=== PATIENT | male | born 1980 | race Caucasian/White ===

== ENCOUNTER 2018-12-01 09:20 | Emergency (ER) | payer SELFPAY ==
[~2018-12-01] VITALS: Ht 180.3 cm; Wt 144.2 kg
[2018-12-01 09:28] VITALS: BP 141/84
== END 2018-12-01 10:23 | disposition home or self-care (01) ==
LOC: ER 09:20
DX: S81.851A Open bite, right lower leg, initial encounter (principal); L08.9 Local infection of the skin and subcutaneous tissue, unspecified; F17.210 Nicotine dependence, cigarettes, uncomplicated; Z88.2 Allergy status to sulfonamides; W57.XXXA Bitten or stung by nonvenomous insect and other nonvenomous arthropods, initial encounter; Y93.89 Activity, other specified; Y99.8 Other external cause status; Y92.89 Other specified places as the place of occurrence of the external cause

== ENCOUNTER 2018-12-09 14:27 | Emergency (ER) | payer OTHER ==
[~2018-12-09] VITALS: Ht 180.3 cm; Wt 131.5 kg
[2018-12-09 14:35] VITALS: BP 181/93
[2018-12-09] MEDS ORDERED: KETOROLAC TROMETH 60MG/2ML VIAL IM ONE (16:30)
== END 2018-12-09 17:05 | disposition home or self-care (01) ==
LOC: ER 14:27
DX: S43.102A Unspecified dislocation of left acromioclavicular joint, initial encounter (principal); F17.210 Nicotine dependence, cigarettes, uncomplicated; Z88.1 Allergy status to other antibiotic agents; Z88.2 Allergy status to sulfonamides; W11.XXXA Fall on and from ladder, initial encounter; Y93.89 Activity, other specified; Y92.89 Other specified places as the place of occurrence of the external cause; Y99.8 Other external cause status
CPT/HCPCS: 73030; 96372; 99283; J1885

== ENCOUNTER 2019-02-01 09:02 | Emergency (ER) | payer SELFPAY ==
[~2019-02-01] VITALS: Ht 182.9 cm; Wt 108.9 kg
[2019-02-01 09:19] VITALS: BP 183/77
[2019-02-01] MEDS ORDERED: HYDROcodone-ACET 10/325MG TAB PO ONE (12:00)
== END 2019-02-01 13:15 | disposition home or self-care (01) ==
LOC: EDBD 09:02 → ER 09:02 → EDUNIT# 09:02 → ER 13:15
DX: S92.421A Displaced fracture of distal phalanx of right great toe, initial encounter for closed fracture (principal); S80.212A Abrasion, left knee, initial encounter; S80.211A Abrasion, right knee, initial encounter; F41.0 Panic disorder [episodic paroxysmal anxiety]; E66.01 Morbid (severe) obesity due to excess calories; R51 Headache; F17.210 Nicotine dependence, cigarettes, uncomplicated; Z68.32 Body mass index [BMI] 32.0-32.9, adult; Z88.1 Allergy status to other antibiotic agents; Z88.2 Allergy status to sulfonamides; X50.1XXA Overexertion from prolonged static or awkward postures, initial encounter; Y93.89 Activity, other specified; Y92.481 Parking lot as the place of occurrence of the external cause; Y99.8 Other external cause status
CPT/HCPCS: 70450; 72170; 73030; 73562; 73620; 99284; L3260

== ENCOUNTER 2020-04-04 21:35 | Emergency (ER) | payer SELFPAY ==
[~2020-04-04] VITALS: Ht 180.3 cm; Wt 122.5 kg
[2020-04-04 22:30] VITALS: BP 158/94
[2020-04-04] MEDS ORDERED: SODIUM CHLORIDE 0.9% 2,000 ML IV ONE (22:45)
== END 2020-04-04 23:10 ==
LOC: ER 21:38
DX: F15.980 Other stimulant use, unspecified with stimulant-induced anxiety disorder (principal); R00.0 Tachycardia, unspecified; F17.210 Nicotine dependence, cigarettes, uncomplicated; Z88.1 Allergy status to other antibiotic agents; Z88.2 Allergy status to sulfonamides
CPT/HCPCS: 99283; J7030

== ENCOUNTER 2023-03-27 01:38 | Emergency (ER) | payer SELFPAY ==
[~2023-03-27] VITALS: Ht 182.9 cm; Wt 155.0 kg
[2023-03-27 03:30] LABS: Basophils # (auto) 0.1 10 ^3/uL (0-0.2); Basophils % (auto) 0.8 % (0.0-2.0); Eosinophils # (auto) 0.1 10 ^3/uL (0-0.8); Hemoglobin 13.6 g/dL (13.5-17.5); Lymphocytes # (auto) 2.6 10 ^3/uL (0.4-5.4); Lymphocytes % (auto) 22.8 % (10.0-50.0); Mean Corpuscular Hemoglobin 27.4 pg (28.0-32.0); Mean Corpuscular Hgb Conc. 33.2 g/dL (32.0-36.0); Mean Corpuscular Volume 82.5 fL (80.0-100.0); Monocytes # (auto) 0.6 10 ^3/uL (0-1.3); Monocytes % (auto) 5.3 % (0.0-12.0); Neutrophils # (auto) 8.1 10 ^3/uL (1.6-8.6); Neutrophils % (auto) 70.1 % (37.0-80.0); Nucleated Red Blood Cells % 0.1 %; Red Blood Cells 4.97 10^6/uL (4.5-5.90); Red Cell Distribution Width 15.9 % (11.8-14.3); White Blood Cell 11.5 10^3/uL (4.4-10.8)
[2023-03-27 03:44] LABS: Albumin 3.4 g/dL (3.4-5.0); BUN/Creatinine Ratio 13.1 (10.0-20.0); Calcium 8.6 mg/dL (8.5-10.1); Potassium 3.9 mmol/L (3.5-5.1)
[2023-03-27 03:47] LABS: Bilirubin, Total 0.3 mg/dL (0.2-1.0); INR 0.98 (0.9-1.15); Partial Thromboplastin Time 25.9 sec (24.6-33.4); Total Protein 7.3 g/dL (6.4-8.2)
[2023-03-27 04:54] VITALS: BP 116/72
== END 2023-03-27 05:11 | disposition short-term general hospital (02) ==
LOC: ER 01:38 → EDBD 01:38 → ER 05:11
DX: S01.01XA Laceration without foreign body of scalp, initial encounter (principal); F17.210 Nicotine dependence, cigarettes, uncomplicated; F15.90 Other stimulant use, unspecified, uncomplicated; Z88.2 Allergy status to sulfonamides; Z88.1 Allergy status to other antibiotic agents; V89.2XXA Person injured in unspecified motor-vehicle accident, traffic, initial encounter; Y93.89 Activity, other specified; Y92.89 Other specified places as the place of occurrence of the external cause; Y99.8 Other external cause status
CPT/HCPCS: 12004; 36415; 70450; 70486; 71250; 72125; 74176; 80053; 84484; 85025; 85610; 85730

== ENCOUNTER 2023-05-05 14:51 | Emergency (ER) | payer SELFPAY ==
[~2023-05-05] VITALS: Ht 175.3 cm; Wt 97.0 kg
[2023-05-05 15:24] VITALS: BP 158/95
== END 2023-05-05 15:33 | disposition home or self-care (01) ==
LOC: ER 14:51
DX: S01.01XD Laceration without foreign body of scalp, subsequent encounter (principal); F41.9 Anxiety disorder, unspecified; F17.210 Nicotine dependence, cigarettes, uncomplicated; F15.90 Other stimulant use, unspecified, uncomplicated; Z88.1 Allergy status to other antibiotic agents; Z88.2 Allergy status to sulfonamides; X58.XXXD Exposure to other specified factors, subsequent encounter

== ENCOUNTER 2025-05-08 20:08 | Emergency (ER) | payer SELFPAY ==
[~2025-05-08] VITALS: Ht 182.9 cm; Wt 177.3 kg
[2025-05-08 20:08] VITALS: TEMP 97
[2025-05-08] MEDS ORDERED: ADENOSINE 6 MG/2 ML INJ IV ONE (20:09)
--- NOTE | 2025-05-08 20:29 | ED.PDOC ---
CPR-HPI HPI Comments 45 y/o morbidly obese male, with no known medical history, is BIBA for c/c of cardiac arrest. Per EMS report, initial call at 1919 by patient's mother for complaint of chest pain and unwitnessed fall. Arrival on scene at 1923. Patient was found lodged in a corner, initially in asystole, with a GSC of 3, fixed and dilated pupils, blood glucose of 500, and capillary refill of 15-20x seconds. Last seen normal was reported by mother to have been 15x minutes prior to arrival. CPR was started, immediately. En route, patient was given 8x rounds of epinephrine and 1x round of sodium bicarbonate (last epinephrine dosage administered at 2000) in addition to I/O right tibia. Upon arrival to ED at 2004, patient still remained in asystole. 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 Time Seen by MD: 20:05 Reviewed Notes: Flaking Roll Operator Notes Allergies: Coded Allergies: Sulfamethoxazole w/Trimethoprim (Verified Allergy, Severe, 12/01/18) Amoxicillin (Verified Allergy, Unknown, 12/09/18) Information Source: Emergency Med Personnel Mode of Arrival: EMS Timing: Hours Duration: Down time prior EMS: (15 minutes ), Total time prior hopital: (55 minutes ) Onset: Unknown Available Hx: Unknown Inital rhythm: Asystole Treatment: CPR, Epinephrine, Other (I/O right tibia, sodium bicarbonate ) Response: No response Associated signs and symptoms: Chest Pain, Other (fall) Past Medical History PAST MEDICAL HISTORY: Denies Surgical History: Denies all surgeries Family History Family History: Unknown Social History Smoker: Unknown, Unobtainable Alcohol: Unknown, Unobtainable Drugs: Unknown, Unobtainable Lives In: Home Unable to Obtain due to: Medical Urgency All Other Systems: Deferred Physical Exam Exam Comments CPR in progress; unable to perform General Appearance: Obese, Other (Unresponsive ) HEENT: NOT DONE Neck: NOT DONE Respiratory: NOT DONE Cardiovascular: NOT DONE Breast Exam: Deferred Gastrointestinal: NOT DONE Genitalia: Deferred Pelvic: Deferred Rectal: Deferred Extremities: NOT DONE Neurologic: NOT DONE Cerebellar Function: NOT DONE Reflexes: NOT DONE Skin: NOT DONE Lymphatic: NOT DONE Was a procedure done? Was a procedure done?: No Differential Dx CPR Differential Diagnosis: Cardiopulmonary arrest, Cardiogenic shock, Electrolyte disorder, Heart Block, Myocardial Infarction, Pulmonary Embolus, Respiratory Failure Time of 1ST Reevaluation: 20:14 Reevaluation 1ST: Patient Education/Counseling: Other (Patient ) Family Education/Counseling: No Family Present Departure 1 Departure Time of Disposition: 20:14 Impression: Primary Impression: Cardiac arrest Disposition: 20 Heart Score Heart Score: Heart Score Response (Comments) Value History N/A 0 EKG N/A 0 Age N/A 0 Risk Factors N/A 0 Troponin N/A 0 Total 0 Stability Stability form required: No I personally scribed for VAHID VILLARREAL MD ([email or web address]) on 05/08/25 at 20:28. Electronically submitted by Reynold Toledo ([email or web address]). I personally scribed for VAHID VILLARREAL MD ([email or web address]) on 05/08/25 at 20:33. Electronically submitted by Reynold Toledo ([email or web address]). VAHID VILLARREAL MD May 08, 2025 20:28
--- NOTE | 2025-05-09 05:28 | RESUS ---
CODE BLUE ASSESSSMENT History of Events History of Events: Secured code blue- 45 y/o morbidly obese male, with no known medical history, is BIBA for c/c of cardiac arrest. Per EMS report, initial call at 1918 by patient's mother for complaint of chest pain and unwitnessed fall. Arrival on scene at 1922. Patient was found lodged in a corner, initially in asystole, with a GSC of 3, fixed and dilated pupils, blood glucose of 500, and capillary refill of 15-20x seconds. Last seen normal was reported by mother to have been 15x minutes prior to arrival. CPR was started, immediately. En route, patient was given 8x rounds of epinephrine and 1x round of sodium bicarbonate (last epinephrine dosage administered at 2000) in addition to I/O right tibia. Upon arrival to ED at 2004, patient still remained in asystole. Initial Information Date: May 08, 2025 Time: 20:05 Location of Arrest: In Field Arrest Witnessed: No CPR started by whom: EMS Last seen well: 15 min prior to EMS arival to scene at 1918 Pre-Hospital Care: ACLS Type of arrest: Cardiac, Respiratory, Adult, Unwitnessed Spontaneous Respirations: No Pulse Present: No Monitoring: ECG, Pulse Oximetry Crash Cart Opened and Supplies: Yes Airway Ventilation Breathing at Onset: Assisted Oxygen Delivery Method: Ambu-Bag Artificial Ventilation: Bag/Endo tube Suctioning (Oral/Tracheal): Yes Circulation Circulation #1: Time: 20:05 Pulse Rate (adult): 0 Blood Pressure Systolic: 0 (unobtainable) Temperature (Fahrenheit): 97.0 Circulation Comment: (Arrived )Asystole Bedside tempt 97.0 Rectal B/S 499 Circulation #2: Time: 20:07 Pulse Rate (adult): 0 Circulation Comment: pulse check asystole Circulation #3: Time: 20:09 Pulse Rate (adult): 0 Circulation Comment: pulse check asystole w/ ultrasound Circulation #4: Time: 20:11 Pulse Rate (adult): 0 Circulation Comment: pulse check asystole w/ ultrasound Circulation #5: Time: 20:13 Circulation Comment: pulse check asystole w/ ultrasound Circulation #6: Time: 20:14 Circulation Comment: TOD Procedure - Intraosseous Site of Intraosseous: Tibia john-medial Intraosseous inserted by: EMS Right tibia Medications & Response Medications and Responses #1: Medication Time: 20:08 ADULT Medications Given ADULT: Epinephrine 1 mg, Magnesium Sulfate 1 gm, Calcium Chloride 10 mL Route of Administration: IO EKG Rhythm: Asystole Medications and Responses #2: Medication Time: 20:10 ADULT Medications Given ADULT: Sodium Bacarbinate 50 meq Route of Administration: IO EKG Rhythm: Asystole Medications and Responses #3: Medication Time: 20:11 ADULT Medications Given ADULT: Epinephrine 1 mg Route of Administration: IO EKG Rhythm: Asystole Nurses Notes Jeane Coma Scale Eye Opening: None (1) [place] Coma Scale Verbal: None (1) Jeane Coma Scale Motor: None (1) [place] Total: 3 Pupil Reaction: Non Reactive (Fixed, non reactive) Bedside Blood Glucose: 499 EKG Rhythm: Asystole Time Code Ended Post Arrest Status: Outcome of code: Unsuccessful Patient pronounced by: Dr. Valencia Family notified: Yes Attending called: Yes (MD bedside) Code Team Present: Dr. Annie Orozco CRATE BUILDER Charge [place] RT ANUJA Galvan RN, RN, RN 26, 2025 05:28
== END 2025-05-08 20:14 ==
LOC: EDBD 20:08 → EDUNIT# 20:08 → ER 20:08
DX: I46.9 Cardiac arrest, cause unspecified (principal); Z88.2 Allergy status to sulfonamides; Z88.0 Allergy status to penicillin; Z79.899 Other long term (current) drug therapy
CPT/HCPCS: 82947; 92950; 99285; J0153; J0171; J3475